=== PATIENT | female | born 1945 | race Caucasian/White ===

== ENCOUNTER 2017-03-13 09:06 | Outpatient (CLI) | payer MEDICARE ==
[2017-03-13 10:25] LABS: Hematocrit 41.5 % (36.0-47.0); Mean Platelet Volume 7.8 fL (7.4-10.4); Red Blood Cell (RBC) Count 4.46 mill/uL (4.20-5.40); White Blood Cell (WBC) Count 6.2 thou/uL (4.8-10.8)
[2017-03-13 10:32] LABS: PTT 34.4 SEC (22.9-36.1)
[2017-03-13 10:37] LABS: Prothrombin Time 13.3 SEC (12.0-14.7)
[2017-03-13 10:38] LABS: Anion Gap 11 mmol/L (10-20); BUN (Urea Nitrogen) 23 mg/dL (9.8-20.1); Calc. Creatinine Clearance 0 mL/min (70-130); Calcium 10.4 mg/dL (7.8-10.44); Carbon Dioxide 31 mmol/L (23-31); Chloride 102 mmol/L (98-107); Estimated GFR-MDRD 49
[2017-03-13 11:10] LABS: Bilirubin Negative (Negative); Blood, Urine Negative (Negative); Glucose, Urine (Dipstick) Negative (Negative); Ketone, Urine Negative (Negative); Nitrite Negative (Negative); Protein, Urine (Dipstick) Trace mg/dL (Neg-Trace); Urobilinogen 0.2 mg/dL (0.2-1.0)
[2017-03-13 11:13] LABS: Bacteria/HPF None Seen HPF (None Seen); Hyaline Casts/LPF 0-3 HYALINE CAST LPF (0-3 Hyaline); Squamous Epithelial None Seen HPF (0-3); WBC/HPF None Seen HPF (0-3)
--- NOTE | 2017-03-13 12:30 | RAD ---
TWO VIEWS CHEST: Date: 03-13-17 History: Pre-operative patient. Comparison: 10-05-14 FINDINGS: Incompletely imaged lumbar spine hardware present. There is stable atherosclerotic calcification and mild prominence of the cardiac silhouette. No pneumothorax or pleural fluid. No focal consolidation or alveolar edema. Right upper quadrant post-surgical clips suggest prior cholecystectomy. IMPRESSION: No acute findings. POS: [facility]
== END 2017-03-13 09:07 | disposition home or self-care (01) ==
LOC: LABBT 09:06
PROVIDERS: ATTEND Orthopaedic Surgery
DX: Z01.818 Encounter for other preprocedural examination (principal); M16.11 Unilateral primary osteoarthritis, right hip
CPT/HCPCS: 71020; 80048; 81001; 85027; 85610; 85730; 86850; 86900; 86901; 87081; 93005; 93010

== ENCOUNTER 2018-09-15 11:01 | Emergency (ER) | payer MEDICARE ==
[2018-09-15] MEDS ORDERED: Adacel (T-DAP) 0.5 ML SYRINGE ONE (12:26)
== END 2018-09-15 12:41 | disposition home or self-care (01) ==
LOC: ERS 11:01
DX: S41.132A Puncture wound without foreign body of left upper arm, initial encounter (principal); E03.9 Hypothyroidism, unspecified; I10 Essential (primary) hypertension; W19.XXXA Unspecified fall, initial encounter
CPT/HCPCS: 90471; 90715

== ENCOUNTER 2021-02-03 10:47 | Outpatient (CLI) | payer MEDICARE | END 2021-02-03 10:48 | disposition home or self-care (01) | LOC: BICMAMMO 10:47 | PROVIDERS: ATTEND Internal Medicine | DX: Z12.31 Encounter for screening mammogram for malignant neoplasm of breast (principal); Z85.41 Personal history of malignant neoplasm of cervix uteri; Z91.89 Other specified personal risk factors, not elsewhere classified; Z98.890 Other specified postprocedural states | CPT/HCPCS: 77063; 77067 ==